=== PATIENT | male | born 1965 | race Two or more races ===

== ENCOUNTER 2019-08-13 12:47 | Emergency (ER) | payer OTHER ==
[~2019-08-13] VITALS: Ht 170.2 cm; Wt 73.4 kg
[~2019-08-13 12:47] MED LIST: ALBUIS; AZIT250 PO; CIPR500 PO; DOXY100 PO; PRED20 PO; RXHYDACE PO
[2019-08-13 13:37] LABS: BASOPHILS ABSOLUTE AUTO 0.03 K/mm3 (0.00-0.23); BASOPHILS PERCENT AUTO 0 % (0-2); EOSINOPHILS ABSOLUTE AUTO 0.17 K/mm3 (0.00-0.68); EOSINOPHILS PERCENT AUTO 2 % (0-6); Hematocrit 44.7 % (37.0-53.0); Hemoglobin 14.9 g/dL (13.5-17.5); IMMATURE GRAN ABSOLUTE AUTO 0.02 K/mm3 (0.00-0.10); IMMATURE GRAN PERCENT AUTO 0 % (0-1); LYMPHOCYTES ABSOLUTE AUTO 2.26 K/mm3 (0.84-5.20); LYMPHOCYTES PERCENT AUTO 24 % (21-46); MONOCYTES ABSOLUTE AUTO 0.58 K/mm3 (0.16-1.47); MONOCYTES PERCENT AUTO 6 % (4-13); Mean Corpuscular HGB 31.7 pg (26.0-34.0); Mean Corpuscular HGB Conc 33.3 g/dL (31.5-36.5); Mean Corpuscular Volume 95 fL (80-100); NEUTROPHILS ABSOLUTE AUTO 6.25 K/mm3 (1.96-9.15); NEUTROPHILS PERCENT AUTO 67 % (41-73); Platelet Count 316 K/mm3 (150-400); RDW Coefficient Variation 12.1 % (11.7-14.2); RDW Standard Deviation 42.3 fL (35.1-46.3); White Blood Cell Count 9.31 K/mm3 (4.00-11.30)
[2019-08-13 13:55] LABS: Alanine Aminotransfer (ALT/SGP 26 U/L (12-78); Albumin, Blood 3.9 g/dL (3.4-5.0); Albumin/Globulin Ratio 1.1 (0.8-1.8); Alk Phos 78 U/L (50-136); Anion Gap 6 mmol/L (6-16); Aspartate Aminotrans (AST/SGOT 16 U/L (12-37); Bilirubin, Total 0.4 mg/dL (0.1-1.0); Blood Urea Nitrogen 14 mg/dL (8-24); Bun/Creatinine Ratio 17.9 (12.0-20.0); CO2, Blood 27 mmol/L (21-32); Chloride, Blood 99 mmol/L (98-108); Creatinine, Blood 0.78 mg/dL (0.60-1.20); Globulin, Blood 3.6 g/dL (2.2-4.0); Glomerular Filtration Rate >60 (60-); Glucose, Blood 77 mg/dL (70-99); Potassium, Blood 3.8 mmol/L (3.5-5.5); Sodium, Blood 132 mmol/L (136-145); Total Protein, Blood 7.5 g/dL (6.4-8.2); Troponin I <0.015 ng/mL (0.000-0.040)
== END 2019-08-13 16:32 | disposition home or self-care (01) ==
LOC: ER 12:47
PROVIDERS: Physician Assistant
DX: R55 Syncope and collapse (principal); R51 Headache; Z88.0 Allergy status to penicillin; J44.9 Chronic obstructive pulmonary disease, unspecified; F17.210 Nicotine dependence, cigarettes, uncomplicated
CPT/HCPCS: 70450; 71046; 80053; 84484; 85025; 93005; 93010; 96374; 96375; 99284-25; J1200; J1885; J2765

== ENCOUNTER → 2021-04-27 | Outpatient (CLI) | payer OTHER | END | disposition home or self-care (01) | LOC: LAB 12:52 → LAB SHORT 12:52 | DX: R35.0 Frequency of micturition (principal) | CPT/HCPCS: 87086 ==

== ENCOUNTER → 2022-06-15 | Outpatient (CLI) | payer OTHER ==
[2022-06-15 12:29] LABS: BASOPHILS ABSOLUTE AUTO 0.04 K/mm3 (0.00-0.23); BASOPHILS PERCENT AUTO 1 % (0-2); EOSINOPHILS ABSOLUTE AUTO 0.31 K/mm3 (0.00-0.68); EOSINOPHILS PERCENT AUTO 4 % (0-6); Hematocrit 44.3 % (37.0-53.0); Hemoglobin 15.3 g/dL (13.5-17.5); IMMATURE GRAN ABSOLUTE AUTO 0.03 K/mm3 (0.00-0.10); IMMATURE GRAN PERCENT AUTO 0 % (0-1); LYMPHOCYTES ABSOLUTE AUTO 2.73 K/mm3 (0.84-5.20); LYMPHOCYTES PERCENT AUTO 36 % (21-46); MONOCYTES PERCENT AUTO 7 % (4-13); Mean Corpuscular HGB 32.3 pg (26.0-34.0); Mean Corpuscular HGB Conc 34.5 g/dL (31.5-36.5); Mean Corpuscular Volume 94 fL (80-100); Mean Platelet Volume 8.8 fL (9.1-12.4); NEUTROPHILS ABSOLUTE AUTO 3.96 K/mm3 (1.96-9.15); NEUTROPHILS PERCENT AUTO 52 % (41-73); Platelet Count 307 K/mm3 (150-400); RDW Coefficient Variation 12.5 % (11.7-14.2); RDW Standard Deviation 43.1 fL (35.1-46.3); Red Blood Cell Count 4.73 M/mm3 (4.30-5.90); White Blood Cell Count 7.57 K/mm3 (4.00-11.30)
[2022-06-15 12:41] LABS: Albumin, Blood 3.4 g/dL (3.4-5.0); Bilirubin, Total 0.4 mg/dL (0.1-1.0); Bun/Creatinine Ratio 14.1 (12.0-20.0); Calcium, Blood 8.5 mg/dL (8.5-10.1); Creatinine, Blood 0.99 mg/dL (0.60-1.20); Globulin, Blood 3.4 g/dL (2.2-4.0); Total Protein, Blood 6.8 g/dL (6.4-8.2)
== END | disposition home or self-care (01) ==
LOC: LAB 12:25 → LAB SHORT 12:25
PROVIDERS: Physician Assistant
DX: R07.9 Chest pain, unspecified (principal)
CPT/HCPCS: 80053; 84484; 85025; 85379

== ENCOUNTER 2022-10-23 06:40 | Day surgery (SDC) | payer OTHER ==
[~2022-10-23] VITALS: Ht 167.6 cm; Wt 76.0 kg
--- NOTE | 2022-10-23 07:26 | NUR ---
10/23/22 0726 Carly Barnett HISTORY, CHART, MEDICATIONS AND ALLERGIES REVIEWED BEFORE START OF PROCEDURE. PATIENT CONFIRMS NPO STATUS AND AGREES WITH SCHEDULED PROCEDURE. 3-LEAD EKG REVIEWED WITH PHYSICIAN PRIOR TO START OF PROCEDURE. MONITOR INTACT WITH CONTINUOUS PULSE OXIMETRY,CAPNOGRAPHY, 3-LEAD EKG, INTERMITTENT BP. SUPPLEMENTAL O2 TO BE TITRATED THROUGHOUT PROCEDURE TO MAINTAIN O2 SATURATION ABOVE 90%. PATIENT DETERMINED TO BE ASA APPROPRIATE FOR PROPOFOL SEDATION PRIOR TO START OF PROCEDURE BY DR. MAY
--- NOTE | 2022-10-23 09:05 | NUR ---
Patient up to Ambulate independently. Gait steady. Discharged via wheelchair to private car for ride home.
== END 2022-10-23 22:34 | disposition home or self-care (01) ==
LOC: ORSCMMR 06:40 → ORD 08:00 → ORSCMMR 08:00
PROVIDERS: Internal Medicine Gastroenterology
PROC: 0DBN8ZX Excision of Sigmoid Colon, Via Natural or Artificial Opening Endoscopic, Diagnostic (ICD-10-PCS; principal; 2022-10-23 08:00)
DX: Z12.11 Encounter for screening for malignant neoplasm of colon (principal); D12.5 Benign neoplasm of sigmoid colon; K63.5 Polyp of colon; G47.33 Obstructive sleep apnea (adult) (pediatric); K64.8 Other hemorrhoids; F17.210 Nicotine dependence, cigarettes, uncomplicated
CPT/HCPCS: 88305; J2704; J7120

== ENCOUNTER 2022-12-31 01:37 | Inpatient (IN) | payer OTHER ==
[~2022-12-31] VITALS: Ht 182.9 cm; Wt 72.1 kg
[2022-12-31 01:52] LABS: BASOPHILS ABSOLUTE AUTO 0.05 K/mm3 (0.00-0.23); BASOPHILS PERCENT AUTO 0 % (0-2); EOSINOPHILS ABSOLUTE AUTO 0.89 K/mm3 (0.00-0.68); EOSINOPHILS PERCENT AUTO 7 % (0-6); Hematocrit 47.6 % (37.0-53.0); IMMATURE GRAN ABSOLUTE AUTO 0.05 K/mm3 (0.00-0.10); IMMATURE GRAN PERCENT AUTO 0 % (0-1); LYMPHOCYTES ABSOLUTE AUTO 5.07 K/mm3 (0.84-5.20); LYMPHOCYTES PERCENT AUTO 39 % (21-46); MONOCYTES ABSOLUTE AUTO 1.04 K/mm3 (0.16-1.47); MONOCYTES PERCENT AUTO 8 % (4-13); Mean Corpuscular HGB 31.7 pg (26.0-34.0); Mean Corpuscular HGB Conc 33.6 g/dL (31.5-36.5); Mean Corpuscular Volume 94 fL (80-100); Mean Platelet Volume 8.5 fL (9.1-12.4); NEUTROPHILS ABSOLUTE AUTO 5.81 K/mm3 (1.96-9.15); NEUTROPHILS PERCENT AUTO 45 % (41-73); Platelet Count 351 K/mm3 (150-400); RDW Coefficient Variation 12.7 % (11.7-14.2); Red Blood Cell Count 5.04 M/mm3 (4.30-5.90); White Blood Cell Count 12.91 K/mm3 (4.00-11.30)
[2022-12-31 01:56] LABS: Base Excess Venous 4.3 mmol/L; Bicarbonate Venous 26.4 mmol/L (24.0-30.0); PCO2 Venous 53.5 mmHg (38-42); pH Blood Venous 7.36 (7.34-7.37)
[2022-12-31 02:13] LABS: Albumin, Blood 3.5 g/dL (3.4-5.0); Albumin/Globulin Ratio 0.9 (0.8-1.8); Bilirubin, Total 0.6 mg/dL (0.1-1.0); Bun/Creatinine Ratio 14.8 (12.0-20.0); Calcium, Blood 8.9 mg/dL (8.5-10.1); Creatinine, Blood 0.81 mg/dL (0.60-1.20); Globulin, Blood 3.8 g/dL (2.2-4.0); Potassium, Blood 4.1 mmol/L (3.5-5.5); Total Protein, Blood 7.3 g/dL (6.4-8.2)
[2022-12-31 02:48] LABS: Influenza A, PCR NEGATIVE (NEGATIVE); Influenza B, PCR NEGATIVE (NEGATIVE); Resp Syncytial Virus, PCR NEGATIVE (NEGATIVE); SARS-Cov-2 (COVID-19) PCR, MMC NEGATIVE (NEGATIVE)
[2022-12-31 03:45] VITALS: BP 130/78
--- NOTE | 2022-12-31 05:27 | NUR ---
ASSUMPTION OF CARE AND SUMMARY NOTE PT ARRIVED TO PCU FROM ED AT 0345. REPORT FROM ZHENG CASE. PT ARRIVED VIA ED INGRID PT ABLE TO TRANSFER INDEPENDENTLY TO PCU HOSPITAL BED. PT TOLERATED THIS WELL. PT A&O X4. VSS. PT ON CPAP, SPO2 96%. PT REPORTS STILL HAVING "SOME SOB W/MOVEMENT, BUT IT HAS IMPROVED". WOB WNL, RR 21. PT DOES HAVE NON-PRODUCTIVE COUGH. DENIES CP OR PRESSURE. PT EDUCATED AND ORIENTED TO ROOM. PT ST WHEN ARRIVED, HR OF 102 SINCE HAS BEEN SR W/ HR IN 80 - 90'S. PT DENIES ANY CONCERNS OR ISSUES VOIDING OR W/BM'S. ASSESSMENT COMPLETED. CALL LIGHT IN REACH AND PT CURRENTLY RESTING. WILL UPDATE ONCOMING ZHENG
[2022-12-31 08:26] VITALS: BP 129/82
[2022-12-31 11:39] VITALS: BP 131/80
[2022-12-31 15:07] VITALS: BP 140/74
[2022-12-31 15:55] VITALS: BP 140/86
--- NOTE | 2022-12-31 15:56 | NUR ---
TRANSFER NOTE / SHIFT SUMMARY PT STATUS CHANGED TO MEDICAL STATUS W/O TELE PER MD ORDERS. PT IS A&O X4. VSS. SPO2 >90% ON RA. SINUS RHYTHM 80'S-110'S. PT DENIES ANY CP OR SOB. TELE REMOVED PER ORDERS. REPORT GIVEN TO ACCEPTING RN. PT TRANSFERED BY WHEELCHAIR TO MEDICAL FLOOR @ APPROX [id number].
--- NOTE | 2022-12-31 16:01 | NUR ---
TRANSFER NOTE OBTAIND REPORT FROM ADALBERTO VALADEZ RN IN PCU. PATIENT ARRIVED TTO ROOM IN , IND TRANSFERRED TO BED. ALERT AND ORIENTED AND PLEASANT. VSS, ON RA, HR TACHY AT 125. CALL LIGHT WITHIN REACH, WATER PROVIDED. SPOUSE AT BEDSIDE.
--- NOTE | 2022-12-31 17:48 | NUR ---
SHIFT SUMMARY ALERT, ORIENTED, AND PLEASANT. INDEPENDENT IN ROOM. ON ROOM AIR, SATTING AT 94%. OCCASIONALLY ANXIOUS AND STATES SOB WHEN PACING ROOM. TACHY AT 125. TOLERATING REGULAR DIET AND LIQUIDS. VOIDING WELL. HOME CPAP AT BEDSIDE AND CONT BIOX IN PLACE. FAMILY AT BEDSIDE. WILL CONTINUE TO MONITOR.
[2022-12-31 20:39] VITALS: BP 140/70
[2023-01-01 05:19] LABS: Bun/Creatinine Ratio 24.1 (12.0-20.0); Calcium, Blood 8.8 mg/dL (8.5-10.1); Creatinine, Blood 0.71 mg/dL (0.60-1.20); Potassium, Blood 4.2 mmol/L (3.5-5.5)
--- NOTE | 2023-01-01 05:49 | NUR ---
AO, UP AD SAMANTHA, CALLS APPROPRIATELY. VSS ON RA EXCEPT ONE EPISODE WHEN PT WOKE WITH SOB AND ANXIETY STATING HE COULD NOT BREATH WITH O2 SATS AT 87%. RT ADMINISTERED NEBULIZER AND SUPPLEMENTAL O2 PLACED AND PATIENT RESTABILIZED. SLEPT WITH CPAP COMFORTABLY FOR REST OF SHIFT.
[2023-01-01 07:15] VITALS: BP 125/83
[2023-01-01 15:00] VITALS: BP 134/67
--- NOTE | 2023-01-01 17:20 | NUR ---
PT IS A/OX4, PLEASANT AND COOPERATIVE. THE PT IS UP IND IN HIS ROOM. THE PT WAS MEDICATED FOR HAX1 TODAY. THE PT APPEARS TO BE BREATHING EASILY ON RA AT THIS TIME, O2 SAT'S > 92% T/O THE DAY. PT WAS GIVEN NEBULIZERS SCHEDULED. THE PT HAD MULTIPLE FAMILY AT THE BEDSIDE TODAY. CALL LIGHT IN REACH WILL CONTINUE TO MONITOR AND ASSESS FOR CHANGES
[2023-01-01 19:14] VITALS: BP 139/66
[2023-01-02 04:06] VITALS: BP 139/72
[2023-01-02 07:34] VITALS: BP 119/65
[2023-01-02] MEDS ORDERED: ALBU2.5V5 INH (08:49)
[2023-01-02] MEDS ORDERED: ACET325 PO (08:49)
[2023-01-02] MEDS ORDERED: PRED20 PO (08:51)
[2023-01-02] MEDS ORDERED: Chantix1 MG PO (08:51)
[2023-01-02] MEDS ORDERED: FLUTICASONE-SA1 EAC2 INH (08:52)
[2023-01-02] MEDS ORDERED: SPIRIVA RESPIMAT4 G3 INH (08:53)
--- NOTE | 2023-01-02 15:16 | NUR ---
AM ASSESSMENT I AGREE WITH THE STUDENT RN JILLIAN'S AM ASSESSMENT AND DOCUMENTATION ON THIS PATIENT
--- NOTE | 2023-01-02 16:11 | NUR ---
SHYLA WAS DISCHARGED AT TODAY AT 1020, HE WAS PROVIDED WITH DISCHARGE EDUCATION REGARDING HIS DISEASE PROCESS, NEW MEDICATIONS AND SMOKING CESATION. PT'S MEDS WERE FAXED INTO HIS PHARMACY, A REFFERAL WAS MADE TO MAKE AN APPOINTMENT WITH HIS PRIMARY DR. BOOKER. THE PATIENT WAS PICKED UP BY FAMILY.
== END 2023-01-02 10:20 | disposition home or self-care (01) | DRG 189 ==
LOC: ER 01:37 → PCU 03:33 → MEDS 03:33 → PCU 03:45 → MEDS 15:54 → ENPENDDIS 01-02 09:17 → MEDS 01-02 10:20
PROVIDERS: Internal Medicine; Student in an Organized Health Care Education/Training Program; ADMIT Internal Medicine
PROC: 5A09357 Assistance with Respiratory Ventilation, Less than 24 Consecutive Hours, Continuous Positive Airway Pressure (ICD-10-PCS; principal; 2022-12-31)
DX: J96.01 Acute respiratory failure with hypoxia (principal); J96.02 Acute respiratory failure with hypercapnia; Z20.822 Contact with and (suspected) exposure to COVID-19; J43.9 Emphysema, unspecified; D72.829 Elevated white blood cell count, unspecified; Z71.6 Tobacco abuse counseling; M43.17 Spondylolisthesis, lumbosacral region; F17.210 Nicotine dependence, cigarettes, uncomplicated; Z98.890 Other specified postprocedural states; Z79.2 Long term (current) use of antibiotics; Z79.899 Other long term (current) drug therapy
CPT/HCPCS: 0241U; 36415; 71045; 72110; 80048; 80053; 82803; 82947; 83880; 84484; 85025; 93005; 93010; 94640; 94644; 94660; 94664; 94760; 94762; 99285-25; A9270; J1650; J2930; J7512

== ENCOUNTER 2025-02-22 09:48 | Day surgery (SDC) | payer OTHER ==
[~2025-02-22] VITALS: Ht 170.2 cm; Wt 92.8 kg
[~2025-02-22 09:48] MED LIST changes: +ACET325 PO; +ALBU2.5V5 INH; +Chantix1 MG PO; +FLUTICASONE-SA1 EAC2 INH; +SPIRIVA RESPIMAT4 G3 INH
[2025-02-22] MEDS ORDERED: OMEP20ER (10:14)
[2025-02-22] MEDS ORDERED: Lidocaine HCl 4% 5 ML SDA ONE (11:24)
[2025-02-22] MEDS ORDERED: Ipratropium/Albuterol SulF 2.5-0.5MG/3 ML Amp ONE (11:46)
[2025-02-22 13:10] VITALS: BP 122/81
== END 2025-02-22 13:12 | disposition home or self-care (01) ==
LOC: ORSCSDS 09:48
PROVIDERS: Specialist
PROC: 0DJD8ZZ Inspection of Lower Intestinal Tract, Via Natural or Artificial Opening Endoscopic (ICD-10-PCS; principal; 2025-02-22 11:30)
PROC: 0D758ZZ Dilation of Esophagus, Via Natural or Artificial Opening Endoscopic (ICD-10-PCS; principal; 2025-02-22 11:30)
PROC: 0DB58ZX Excision of Esophagus, Via Natural or Artificial Opening Endoscopic, Diagnostic (ICD-10-PCS; principal; 2025-02-22 11:30)
PROC: 0DB68ZX Excision of Stomach, Via Natural or Artificial Opening Endoscopic, Diagnostic (ICD-10-PCS; principal; 2025-02-22 11:30)
DX: R10.13 Epigastric pain (principal); R13.10 Dysphagia, unspecified; K62.5 Hemorrhage of anus and rectum; J44.9 Chronic obstructive pulmonary disease, unspecified; K57.30 Diverticulosis of large intestine without perforation or abscess without bleeding; K64.8 Other hemorrhoids; Z86.0100 Personal history of colon polyps, unspecified; K21.9 Gastro-esophageal reflux disease without esophagitis; K44.9 Diaphragmatic hernia without obstruction or gangrene; G47.33 Obstructive sleep apnea (adult) (pediatric); E66.9 Obesity, unspecified; Z68.32 Body mass index [BMI] 32.0-32.9, adult; F17.200 Nicotine dependence, unspecified, uncomplicated; Z79.899 Other long term (current) drug therapy
CPT/HCPCS: 88305; 88312; C1769; J2003; J2704; J7120